=== PATIENT | female | born 1970 | race Caucasian/White ===

== ENCOUNTER 2016-11-20 18:20 | Emergency (ER) | payer SELFPAY ==
[2016-11-20] MEDS ORDERED: Adacel (T-DAP) 0.5 ML VIAL ONE (19:31)
== END 2016-11-20 20:15 | disposition home or self-care (01) ==
LOC: MADERS 18:20
DX: T63.481A Toxic effect of venom of other arthropod, accidental (unintentional), initial encounter (principal); I10 Essential (primary) hypertension; E78.5 Hyperlipidemia, unspecified; J42 Unspecified chronic bronchitis; F41.9 Anxiety disorder, unspecified; F17.210 Nicotine dependence, cigarettes, uncomplicated
CPT/HCPCS: 90471; 90715; 96372; J1040